=== PATIENT | female | born 2000 | race African-American/Black ===

== ENCOUNTER 2020-11-13 20:34 | Emergency (ER) | payer SELFPAY ==
[~2020-11-13] VITALS: Ht 172.7 cm; Wt 142.2 kg
[2020-11-13 21:01] LABS: CLARITY URINE CLEAR (CLEAR); COLOR URINE YELLOW (YELLOW); KETONES URINE NEGATIVE (NEGATIVE); LEUKOCYTE ESTERASE URINE NEGATIVE (NEGATIVE); NITRITE URINE NEGATIVE (NEGATIVE); OCCULT BLOOD URINE NEGATIVE (NEGATIVE); PROTEIN URINE NEGATIVE (NEGATIVE); SPECIFIC GRAVITY URINE 1.023 (1.005-1.030)
[2020-11-13] MEDS ORDERED: IBUPROFEN 600MG TABLET PO STA (21:17)
[2020-11-13 22:17] LABS: BASOPHILS % 0.7 % (0.0-2.0); EOSINOPHILS % 3.4 % (0.0-5.0); HEMATOCRIT. 38.3 % (36.0-48.0); LYMPHOCYTES % 39.2 % (20.0-50.0); MEAN CORPUSCULAR HEMOGLOBIN 28.2 pg (28.0-32.0); MEAN CORPUSCULAR VOLUME 83.3 fL (81.0-99.0); MEAN PLATELET VOLUME 9.4 fl (7.4-10.4); MONOCYTES % 5.2 % (2.0-8.0); NEUTROPHILS % 51.5 % (40.0-76.0); PLATELET 325 x1000/uL (130-400); RED CELL DISTRIBUTION WIDTH 13.9 % (11.6-14.6)
[2020-11-13 22:19] LABS: CHLORIDE 106 mEq/L (98-107)
[2020-11-13] MEDS ORDERED: IBUP-2029 MT (22:51)
[2020-11-13 23:28] VITALS: BP 135/82
== END 2020-11-13 23:31 | disposition home or self-care (01) ==
LOC: ER 20:34
DX: R07.2 Precordial pain (principal); R03.0 Elevated blood-pressure reading, without diagnosis of hypertension
CPT/HCPCS: 36415; 71045; 80053; 81003; 81025; 85025; 93005; 99285

== ENCOUNTER 2021-02-03 23:33 | Emergency (ER) | payer SELFPAY ==
[~2021-02-03] VITALS: Ht 172.7 cm; Wt 141.0 kg
[~2021-02-03 23:33] MED LIST: IBUP-2029 MT
[2021-02-03 23:43] VITALS: BP 109/56
[2021-02-04 00:47] LABS: CLARITY URINE CLEAR (CLEAR); COLOR URINE YELLOW (YELLOW); KETONES URINE TRACE (NEGATIVE); LEUKOCYTE ESTERASE URINE NEGATIVE (NEGATIVE); NITRITE URINE NEGATIVE (NEGATIVE); OCCULT BLOOD URINE NEGATIVE (NEGATIVE); PH URINE 6.5 (4.5-8.0); PROTEIN URINE TRACE (NEGATIVE); SPECIFIC GRAVITY URINE 1.035 (1.005-1.030)
== END 2021-02-04 03:26 | disposition home or self-care (01) ==
LOC: ER 23:33
DX: R10.9 Unspecified abdominal pain (principal)
CPT/HCPCS: 81003; 81025; 99283

== ENCOUNTER 2021-11-19 19:25 | Emergency (ER) | payer MEDICAID ==
[~2021-11-19] VITALS: Ht 172.7 cm; Wt 127.0 kg
[2021-11-19] MEDS ORDERED: ASPIRIN 81MG TABLET PO ONE (19:45)
[2021-11-19 21:08] LABS: EOSINOPHILS % 0.9 % (0.0-5.0); HEMATOCRIT. 39.2 % (36.0-48.0); HEMOGLOBIN. 12.9 g/dL (12.0-16.0); MEAN CORPUSCULAR VOLUME 85.2 fL (81.0-99.0); MEAN PLATELET VOLUME 9.3 fl (7.4-10.4); MONOCYTES % 4.3 % (2.0-8.0); NEUTROPHILS % 60.8 % (40.0-76.0); PLATELET 325 x1000/uL (130-400); RED BLOOD CELL COUNT 4.59 mill/uL (4.2-5.4); RED CELL DISTRIBUTION WIDTH 14.1 % (11.6-14.6)
[2021-11-19 21:17] LABS: CHLORIDE 109 mEq/L (98-107)
[2021-11-19 21:57] LABS: CLARITY URINE CLOUDY (CLEAR); COLOR URINE DARK YELLOW (YELLOW); KETONES URINE TRACE (NEGATIVE); LEUKOCYTE ESTERASE URINE NEGATIVE (NEGATIVE); NITRITE URINE NEGATIVE (NEGATIVE); OCCULT BLOOD URINE NEGATIVE (NEGATIVE); PROTEIN URINE 1+ (NEGATIVE); SPECIFIC GRAVITY URINE 1.037 (1.005-1.030)
[2021-11-19] MEDS ORDERED: NITR100C MT (22:49)
[2021-11-19 23:00] VITALS: BP 125/78
== END 2021-11-19 22:00 | disposition home or self-care (01) ==
LOC: ER 19:25
DX: R07.89 Other chest pain (principal); N39.0 Urinary tract infection, site not specified
CPT/HCPCS: 36415; 71045; 80053; 81003; 84484; 85025; 93005; 99285; Z7610

== ENCOUNTER 2023-11-25 21:44 | Emergency (ER) | payer MEDICAID, OTHER ==
[~2023-11-25] VITALS: Ht 172.7 cm; Wt 136.0 kg
[~2023-11-25 21:44] MED LIST changes: +NITR100C MT
[2023-11-25 22:00] VITALS: TEMP 98.6; O2SAT 98
[2023-11-26] MEDS ORDERED: CLIN-194 MT (00:56)
[2023-11-26 01:00] VITALS: BP 122/80; PULSE 92; RESP 18
[2023-11-26] MEDS: KETOROLAC 15MG/ML VIAL IM ONE (01:00)
== END 2023-11-26 02:45 | disposition home or self-care (01) ==
LOC: ER 21:44
DX: L73.2 Hidradenitis suppurativa (principal)
CPT/HCPCS: 99283; 96372; J1885; Z7610 ×3

== ENCOUNTER 2024-04-13 00:19 | Emergency (ER) | payer MEDICAID ==
[~2024-04-13] VITALS: Ht 172.7 cm; Wt 136.1 kg
[~2024-04-13 00:19] MED LIST changes: +CLIN-194 MT
[2024-04-13 00:23] VITALS: O2SAT 100
[2024-04-13 00:31] VITALS: BP 146/83; PULSE 90; TEMP 98.8; O2SAT 98
[2024-04-13] MEDS: ACETAMINOPHEN 325MG TABLET PO ONE (01:15)
[2024-04-13 02:00] VITALS: RESP 16
== END 2024-04-13 02:27 | disposition home or self-care (01) ==
LOC: ER 00:19
DX: J02.8 Acute pharyngitis due to other specified organisms (principal); B97.89 Other viral agents as the cause of diseases classified elsewhere; Z88.8 Allergy status to other drugs, medicaments and biological substances; Z91.041 Radiographic dye allergy status
CPT/HCPCS: 87070; 87430; 99283